=== PATIENT | male | born 1985 | race Caucasian/White ===

== ENCOUNTER 2016-12-07 10:50 | Day surgery (SDC) | payer SELFPAY ==
[~2016-12-07] VITALS: Ht 188 cm; Wt 70.3 kg
[~2016-12-07 10:50] MED LIST: ACC15GT EXT; AMOX500C2 PO; CIPR-225 PO; CYCL10TA9 PO; HYDR1TAB8 OP; PREG75CA PO; TRAM-42 PO; TRAM50TA2 PO; VALA100033 PO
--- NOTE | 2016-12-07 11:13 | ED Abdominal Pain ---
General Chief Complaint: Abdominal/GI Problems Stated Complaint: ABD PAIN Source of Information: Patient Exam Limitations: No Limitations History of Present Illness Time Seen By Provider: 11:12 Initial Comments To ER with epigastric and right upper quadrant abdominal pain for the past 2 days. He's had associated nausea and vomiting but no diarrhea or constipation. He's had chills but no measured fevers as he does not have a thermometer. He had a similar episode a few months ago of this pain but it resolved on its own after a course of a couple of days. He last ate a bowl of cereal at 830 a.m. this morning. Upon arrival to ER he is tachycardic at 130, temperature of 100, blood pressure 124/76. Timing/Duration: 1-2 Days Severity/Quality: Severe, Aching, Full Location: RUQ, Epigastric Radiation: No Radiation Associated Symptoms: Fever/Chills, Nausea/Vomiting Allergies and Home Medications Allergies Coded Allergies: No Known Drug Allergies (Unverified , 06/12/15) Home Medications No Active Prescriptions or Reported Meds Review of Systems Constitutional: see HPI, chills, No fever EENTM: No Symptoms Reported Respiratory: No Symptoms Reported, Denies Cough, Denies Shortness of Air Cardiovascular: No Symptoms Reported Gastrointestinal: See HPI, Abdominal Pain, Nausea, Vomiting Genitourinary: No Symptoms Reported Musculoskeletal: no symptoms reported Skin: no symptoms reported Psychiatric/Neurological: No Symptoms Reported Endocrine: No Symptoms Reported Past Yfrcjia-Usgicn-Rrftpy Hx Patient Social History Recent Foreign Travel: No Contact w/Someone Who Travel: No Immunizations Up To Date Tetanus Booster (TDap): Less than 5yrs Surgeries HX Surgeries: No Respiratory Hx Respiratory Disorders: No Cardiovascular Hx Cardiac Disorders: No Neurological Hx Neurological Disorders: No Reproductive System Hx Reproductive Disorders: No Genitourinary Hx Genitourinary Disorders: No Gastrointestinal Hx Gastrointestinal Disorders: No Musculoskeletal Hx Musculoskeletal Disorders: No Endocrine Hx Endocrine Disorders: No HEENT HX ENT Disorders: No Cancer Hx Cancer: No Psychosocial Hx Psychiatric Problems: No Integumentary HX Skin/Integumentary Disorder: Yes Skin/Integumentary Disorders: Psoriasis Blood Transfusions Hx Blood Disorders: No Family Medical History Significant Family History: No Pertinent Family Hx Family Medial History: Patient reports no known family medical history. Physical Exam Vital Signs VS - Last 72 Hours, by Label 12/07/16 11:10 Temp 100.0 Pulse 128 Resp 20 B/P (MAP) 124/75 Pulse Ox 97 O2 Delivery Room Air Capillary Refill : General Appearance: WD/WN, no apparent distress HEENT: PERRL/EOMI, normal ENT inspection Neck: non-tender, full range of motion Respiratory: normal breath sounds, no respiratory distress, no accessory muscle use Cardiovascular: no murmur, tachycardia Gastrointestinal: normal bowel sounds, soft, tenderness (epigastric and right upper quadrant tenderness) Extremities: normal range of motion, non-tender Neurologic/Psychiatric: alert, normal mood/affect, oriented x 3 Skin: normal color, warm/dry Progress/Results/Core Measures Results/Orders Lab Results Laboratory Tests Test 12/07/16 11:10 12/07/16 11:12 Range/Units White Blood Count 10.8 4.3-11.0 10^3/uL Red Blood Count 5.10 4.35-5.85 10^6/uL Hemoglobin 16.0 13.3-17.7 G/DL Hematocrit 46 40-54 % Mean Corpuscular Volume 91 80-99 FL Mean Corpuscular Hemoglobin 31 25-34 PG Mean Corpuscular Hemoglobin Concent 35 32-36 G/DL Red Cell Distribution Width 12.1 10.0-14.5 % Platelet Count 211 130-400 10^3/uL Mean Platelet Volume 9.3 7.4-10.4 FL Neutrophils (%) (Auto) 92 H 42-75 % Lymphocytes (%) (Auto) 7 L 12-44 % Monocytes (%) (Auto) 1 0-12 % Eosinophils (%) (Auto) 0 0-10 % Basophils (%) (Auto) 0 0-10 % Neutrophils # (Auto) 9.9 H 1.8-7.8 X 10^3 Lymphocytes # (Auto) 0.7 L 1.0-4.0 X 10^3 Monocytes # (Auto) 0.1 0.0-1.0 X 10^3 Eosinophils # (Auto) 0.0 0.0-0.3 10^3/uL Basophils # (Auto) 0.0 0.0-0.1 10^3/uL Neutrophils % (Manual) 85 % Lymphocytes % (Manual) 11 % Monocytes % (Manual) 0 % Eosinophils % (Manual) 0 % Basophils % (Manual) 0 % Band Neutrophils 4 % Blood Morphology Comment NORMAL Sodium Level 138 135-145 MMOL/L Potassium Level 3.6 3.6-5.0 MMOL/L Chloride Level 107 98-107 MMOL/L Carbon Dioxide Level 24 21-32 MMOL/L Anion Gap 7 5-14 MMOL/L Blood Urea Nitrogen 11 7-18 MG/DL Creatinine 0.74 0.60-1.30 MG/DL Estimat Glomerular Filtration Rate > 60 BUN/Creatinine Ratio 15 Glucose Level 117 H 70-105 MG/DL Calcium Level 9.3 8.5-10.1 MG/DL Total Bilirubin 1.5 H 0.1-1.0 MG/DL Aspartate Amino Transf (AST/SGOT) 18 5-34 U/L Alanine Aminotransferase (ALT/SGPT) 15 0-55 U/L Alkaline Phosphatase 80 40-136 U/L Total Protein 6.8 6.4-8.2 G/DL Albumin 4.2 3.2-4.5 G/DL Lipase 29 8-78 U/L Urine Color YELLOW Urine Clarity CLEAR Urine pH 6 5-9 Urine Specific [place] 1.020 1.016-1.022 Urine Protein 1+ H NEGATIVE Urine Glucose (UA) NEGATIVE NEGATIVE Urine Ketones NEGATIVE NEGATIVE Urine Nitrite NEGATIVE NEGATIVE Urine Bilirubin NEGATIVE NEGATIVE Urine Urobilinogen 4 H NORMAL MG/DL Urine Leukocyte Esterase 1+ H NEGATIVE Urine RBC (Auto) 1+ H NEGATIVE Urine RBC RARE /HPF Urine WBC RARE /HPF Urine Crystals NONE /LPF Urine Bacteria NEGATIVE /HPF Urine Casts NONE /LPF Urine Mucus NEGATIVE /LPF Urine Culture Indicated NO Urine Opiates Screen NEGATIVE NEGATIVE Urine Oxycodone Screen NEGATIVE NEGATIVE Urine Methadone Screen NEGATIVE NEGATIVE Urine Propoxyphene Screen NEGATIVE NEGATIVE Urine Barbiturates Screen NEGATIVE NEGATIVE Ur Tricyclic Antidepressants Screen NEGATIVE NEGATIVE Urine Phencyclidine Screen NEGATIVE NEGATIVE Urine Amphetamines Screen NEGATIVE NEGATIVE Urine Methamphetamines Screen NEGATIVE NEGATIVE Urine Benzodiazepines Screen NEGATIVE NEGATIVE Urine Cocaine Screen NEGATIVE NEGATIVE Urine Cannabinoids Screen POSITIVE H NEGATIVE My Orders Orders - MARU CHAMBERS APRN Cbc With Automated Diff (12/07/16 11:11) Comprehensive Metabolic Panel (12/07/16 11:11) Ua Culture If Indicated (12/07/16 11:11) Drug Screen Stat (Urine) (12/07/16 11:11) Lipase (12/07/16 11:11) Saline Lock/Iv-Start (12/07/16 11:11) Ct Abdomen/Pelvis W (12/07/16 11:11) Ns Iv 1000 Ml (Sodium Chloride 0.9%) (12/07/16 11:15) Ondansetron Injection (Zofran Injectio (12/07/16 11:15) Fentanyl Injection (Sublimaze Injection (12/07/16 11:15) Iohexol Injection (Omnipaque 350 Mg/Ml 1 (12/07/16 11:30) Sodium Chloride Flush (Catheter Flush Sy (12/07/16 11:30) Ns (Ivpb) (Sodium Chloride 0.9% Ivpb Bag (12/07/16 11:30) Manual Differential (12/07/16 11:10) Medications Given in ED Current Medications Medications Dose Ordered Sig/Brit Route Start Time Stop Time Status Last Admin Dose Admin Fentanyl Citrate 50 mcg ONCE ONCE IVP 12/07/16 11:15 12/07/16 11:16 DC 12/07/16 11:20 50 MCG Iohexol 100 ml ONCE ONCE IV 12/07/16 11:30 12/07/16 11:31 DC 12/07/16 11:37 100 ML Ondansetron HCl 4 mg ONCE ONCE IVP 12/07/16 11:15 12/07/16 11:16 DC 12/07/16 11:21 4 MG Sodium Chloride 10 ml NEEDED PRN IV 12/07/16 11:30 12/07/16 11:37 10 ML Sodium Chloride 100 ml ONCE ONCE IV 12/07/16 11:30 12/07/16 11:31 DC 12/07/16 11:37 80 ML Vital Signs/I&O Vital Sign - Last 12Hours 12/07/16 11:10 Temp 100.0 Pulse 128 Resp 20 B/P (MAP) 124/75 Pulse Ox 97 O2 Delivery Room Air Diagnostic Imaging Diagonstic Imaging: CT Plain Films/CT/US/NM/MRI: abdomen, pelvis Comments NAME: SOFYSERGOBreanna Rodriguez MED REC#: [id number] PT STATUS: [place] [facility] [place] 1985 PHYSICIAN: MARU CHAMBERS APRN ADMIT DATE: 12/07/16/[facility] [place] Date of Exam:12/07/16 CT ABDOMEN/PELVIS W PROCEDURE: CT abdomen and pelvis with contrast. TECHNIQUE: Multiple contiguous axial images were obtained through the abdomen and pelvis after administration of intravenous contrast. INDICATION: Right-sided abdominal pain. Vomiting. 100 mL of Omnipaque 350 is administered intravenously. FINDINGS: Mild emphysema changes are seen in the lung bases. The liver, the gallbladder, the spleen, the adrenal glands, and the pancreas appear unremarkable. There is inflammation in the retrocecal region with dilated fluid-filled appendix compatible with acute appendicitis. There is a small amount of free fluid seen in the right paracolic gutter with no fluid collection or abscess seen. No evidence of perforation at this time. No pneumoperitoneum. No bowel obstruction. The abdominal aorta is normal in caliber. No para-aortic significantly enlarged lymph node is seen. The osseous structures appear grossly unremarkable. IMPRESSION: Appendicitis. No evidence of perforation or abscess. The findings were discussed with SABRINA Johnson at time of dictation. Dictated on workstation # [id number] Dict: 12/07/16 1153 Trans: 12/07/[address] [facility] [id number] Interpreted by: JERMAIN CORDOBA MD Electronically signed by: Departure Communication Progress Notes 1200-discussed with Dr. Mcdonnell. He will be down to see the patient Impression Impression: Primary Impression: Acute appendicitis Disposition: ADMITTED INPATIENT Condition: Stable Decision to Admit Reason: Admit from ER (General) Decision to Admit/Date: December 07, 2016 Time/Decision to Admit Time: 12:00 Departure-Patient Inst. Referrals: [facility] (PCP/Family) Primary Care Physician Scripts No Active Prescriptions or Reported Meds MARU CHAMBERS APRN December 07, 2016 11:13
[2016-12-07] MEDS ORDERED: NS IV 1000 ML 1,000 ML IV SCH (11:15)
[2016-12-07] MEDS ORDERED: ONDANSETRON 4 MG/2 ML (SDV) Z0FRAN IVP ONE (11:15)
[2016-12-07] MEDS ORDERED: fentaNYL INJECTION 100 MCG/2 ML AMP IVP ONE ×2 (11:15→12:15)
[2016-12-07 11:18] LABS: BASOPHILS % (AUTO) 0 % (0-10); EOSINOPHILS % (AUTO) 0 % (0-10); LYMPHOCYTES # (AUTO) 0.7 X 10^3 (1.0-4.0); LYMPHOCYTES % (AUTO) 7 % (12-44); MEAN CORPUSCULAR HEMOGLOBIN 31 PG (25-34); MEAN CORPUSCULAR HGB CONC 35 G/DL (32-36); MEAN CORPUSCULAR VOLUME 91 FL (80-99); MEAN PLATELET VOLUME 9.3 FL (7.4-10.4); MONOCYTES # (AUTO) 0.1 X 10^3 (0.0-1.0); MONOCYTES % (AUTO) 1 % (0-12); NEUTROPHILS # (AUTO) 9.9 X 10^3 (1.8-7.8); NEUTROPHILS % (AUTO) 92 % (42-75); PLATELET COUNT 211 10^3/uL (130-400); RED CELL DISTRIBUTION WIDTH 12.1 % (10.0-14.5); WHITE BLOOD COUNT 10.8 10^3/uL (4.3-11.0)
[2016-12-07 11:19] LABS: BILIRUBIN,URINE NEGATIVE (NEGATIVE); KETONES,URINE NEGATIVE (NEGATIVE); LEUKOCYTE ESTERASE ,URINE 1+ (NEGATIVE); NITRITE,URINE NEGATIVE (NEGATIVE); PH,URINE 6 (5-9); PROTEIN,URINE 1+ (NEGATIVE); UROBILINOGEN,URINE 4 MG/DL (NORMAL)
[2016-12-07] MEDS ORDERED: IOHEXOL 350 MG/ML 100 ML (OMNIPAQUE 350) VIAL IV ONE (11:30)
[2016-12-07] MEDS ORDERED: NS 100 ML (IVPB) BAG IV ONE (11:30)
[2016-12-07] MEDS ORDERED: CATHETER FLUSH 10 ML SYR IV PRN (11:30)
[2016-12-07 11:32] LABS: WBC,URINE RARE /HPF
[2016-12-07 11:39] LABS: ALANINE AMINOTRANSFERASE 15 U/L (0-55); ALBUMIN 4.2 G/DL (3.2-4.5); ANION GAP 7 MMOL/L (5-14); ASPARTATE AMINO TRANSFERASE 18 U/L (5-34); BILIRUBIN,TOTAL 1.5 MG/DL (0.1-1.0); BLOOD UREA NITROGEN 11 MG/DL (7-18); BUN/CREATININE RATIO 15; CALCIUM 9.3 MG/DL (8.5-10.1); CARBON DIOXIDE 24 MMOL/L (21-32); CHLORIDE 107 MMOL/L (98-107); CREATININE SERUM 0.74 MG/DL (0.60-1.30); GFR ESTIMATED > 60; GLUCOSE 117 MG/DL (70-105); LIPASE 29 U/L (8-78); POTASSIUM 3.6 MMOL/L (3.6-5.0); SODIUM 138 MMOL/L (135-145); TOTAL PROTEIN 6.8 G/DL (6.4-8.2)
[2016-12-07 11:40] LABS: BAND NEUTROPHILS 4 %; BASOPHILS % (MANUAL) 0 %; EOSINOPHILS % (MANUAL) 0 %; LYMPHOCYTES % (MANUAL) 11 %; NEUTROPHILS % (MANUAL) 85 %
--- NOTE | 2016-12-07 12:05 | Diagnostic Imaging Report ---
PROCEDURE: CT abdomen and pelvis with contrast. TECHNIQUE: Multiple contiguous axial images were obtained through the abdomen and pelvis after administration of intravenous contrast. INDICATION: Right-sided abdominal pain. Vomiting. 100 mL of Omnipaque 350 is administered intravenously. FINDINGS: Mild emphysema changes are seen in the lung bases. The liver, the gallbladder, the spleen, the adrenal glands, and the pancreas appear unremarkable. There is inflammation in the retrocecal region with dilated fluid-filled appendix compatible with acute appendicitis. There is a small amount of free fluid seen in the right paracolic gutter with no fluid collection or abscess seen. No evidence of perforation at this time. No pneumoperitoneum. No bowel obstruction. The abdominal aorta is normal in caliber. No para-aortic significantly enlarged lymph node is seen. The osseous structures appear grossly unremarkable. IMPRESSION: Appendicitis. No perforation or abscess. The findings were discussed with SABRINA Johnson at time of dictation. Dictated by: Dictated on workstation # [id number]
[2016-12-07] MEDS ORDERED: LIDOCAINE/EPI 1%-1:100,000 (XYLOCAINE) 20ML ONE (13:07)
--- NOTE | 2016-12-07 13:09 | Consultation ---
History of Present Illness History of Present Illness Patient Consulted On(fidel/time) 12/07/16 13:02 Date of Admission History of Present Illness Surgery is asked to consult regarding RLQ pain, CT positive for appendicitis. HPI Pt presented to ER with epigastric and right lower quadrant abdominal pain for the past 2 days. He's had associated nausea and vomiting "four times yesterday "; but no diarrhea or constipation. He's had chills but no measured fevers, did not take his temp at home. He had a similar episode a few months ago of this pain but it resolved on its own after a course of a couple of days. He last ate a bowl of cereal at 830 a.m. this morning. Upon arrival to ER he is tachycardic at 130, temperature of 100, blood pressure 124/76. Pt states he thinks it started at noon yesterday. Rating the pain as 10 out of 10. Sharp stabbing pain, with no radiation. Nothing made it better. Allergies and Home Medications Allergies Coded Allergies: No Known Drug Allergies (Unverified , 06/12/15) Home Medications No Active Prescriptions or Reported Meds Past Bsstght-Lhzujt-Vncsto Hx Patient Social History Alcohol Use: Occasionally Uses Recreational Drug Use: Yes Drug of Choice: pot Smoking Status: Current Everyday Smoker Type Used: Cigarettes 2nd Hand Smoke Exposure: Yes Recent Foreign Travel: No Contact w/Someone Who Travel: No Recent Infectious Disease Expo: No Recent Hopitalizations: No Immunizations Up To Date Tetanus Booster (TDap): Less than 5yrs Seasonal Allergies Seasonal Allergies: No Surgeries HX Surgeries: Yes (on a gland in neck) Respiratory Hx Respiratory Disorders: No Cardiovascular Hx Cardiac Disorders: No Neurological Hx Neurological Disorders: No Reproductive System Hx Reproductive Disorders: No Genitourinary Hx Genitourinary Disorders: No Gastrointestinal Hx Gastrointestinal Disorders: No Musculoskeletal Hx Musculoskeletal Disorders: No Endocrine Hx Endocrine Disorders: No HEENT HX ENT Disorders: No Cancer Hx Cancer: No Psychosocial Hx Psychiatric Problems: No Integumentary HX Skin/Integumentary Disorder: Yes Skin/Integumentary Disorders: Psoriasis Blood Transfusions Hx Blood Disorders: No Family Medical History Significant Family History: No Pertinent Family Hx, Diabetes (denies), Hypertension (denies) Family Medial History: Patient reports no known family medical history. Review of Systems-General Constitutional: chills, diaphoresis, fever, weakness EENTM: No blurred vision, No epistaxis, No hoarseness, No throat swelling Respiratory: No cough, No dyspnea on exertion Cardiovascular: No chest pain, No edema, No palpitations Gastrointestinal: see HPI, No melena Genitourinary: No discharge, No dysuria, No frequency, No hematuria Musculoskeletal: No joint pain, No joint swelling, No muscle pain Skin: No change in color, No change in hair/nails Psychiatric/Neurological: Denies Anxiety, Denies Depressed, Denies Seizure Physical Exam-General Problems Physical Exam Vital Signs Vital Sign - Last 12Hours 12/07/16 11:10 Temp 100.0 Pulse 128 Resp 20 B/P (MAP) 124/75 Pulse Ox 97 O2 Delivery Room Air Capillary Refill : Less Than 3 Seconds General Appearance: WD/WN, moderate distress Eyes: Bilateral Eye EOMI, Bilateral Eye PERRL HEENT: pharynx normal, No scleral icterus (R), No scleral icterus (L) Neck: non-tender, full range of motion, supple, normal inspection Respiratory: chest non-tender, lungs clear, normal breath sounds, no respiratory distress, no accessory muscle use Cardiovascular: regular rate, rhythm, no murmur Gastrointestinal: no organomegaly, no pulsatile mass, guarding, tenderness (RLQ ) Back: no CVA tenderness, no vertebral tenderness Extremities: normal inspection, no pedal edema, no calf tenderness, normal capillary refill Neurologic/Psychiatric: 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, no motor/sensory deficits, alert, normal mood/affect, oriented x 3 Skin: normal color, warm/dry Lymphatic: no adenopathy (neck, axilla, groin) Data Review Labs Laboratory Tests 12/07/16 11:10: White Blood Count 10.8, Red Blood Count 5.10, Hemoglobin 16.0, Hematocrit 46, Mean Corpuscular Volume 91, Mean Corpuscular Hemoglobin 31, Mean Corpuscular Hemoglobin Concent 35, Red Cell Distribution Width 12.1, Platelet Count 211, Mean Platelet Volume 9.3, Neutrophils (%) (Auto) 92H, Lymphocytes (%) (Auto) 7L , Monocytes (%) (Auto) 1, Eosinophils (%) (Auto) 0, Basophils (%) (Auto) 0, Neutrophils # (Auto) 9.9H, Lymphocytes # (Auto) 0.7L, Monocytes # (Auto) 0.1, Eosinophils # (Auto) 0.0, Basophils # (Auto) 0.0, Neutrophils % (Manual) 85, Lymphocytes % (Manual) 11, Monocytes % (Manual) 0, Eosinophils % (Manual) 0, Basophils % (Manual) 0, Band Neutrophils 4, Blood Morphology Comment NORMAL, Sodium Level 138, Potassium Level 3.6, Chloride Level 107, Carbon Dioxide Level 24, Anion Gap 7, Blood Urea Nitrogen 11, Creatinine 0.74, Estimat Glomerular Filtration Rate > 60, BUN/Creatinine Ratio 15, Glucose Level 117H, Calcium Level 9.3, Total Bilirubin 1.5H, Aspartate Amino Transf (AST/SGOT) 18, Alanine Aminotransferase (ALT/SGPT) 15, Alkaline Phosphatase 80, Total Protein 6.8, Albumin 4.2, Lipase 29 12/07/16 11:12: Urine Color YELLOW, Urine Clarity CLEAR, Urine pH 6, Urine Specific [place] 1.020, Urine Protein 1+H, Urine Glucose (UA) NEGATIVE, Urine Ketones NEGATIVE, Urine Nitrite NEGATIVE, Urine Bilirubin NEGATIVE, Urine Urobilinogen 4H, Urine Leukocyte Esterase 1+H, Urine RBC (Auto) 1+H, Urine RBC RARE, Urine WBC RARE, Urine Crystals NONE, Urine Bacteria NEGATIVE, Urine Casts NONE, Urine Mucus NEGATIVE, Urine Culture Indicated NO, Urine Opiates Screen NEGATIVE, Urine Oxycodone Screen NEGATIVE, Urine Methadone Screen NEGATIVE, Urine Propoxyphene Screen NEGATIVE, Urine Barbiturates Screen NEGATIVE, Ur Tricyclic Antidepressants Screen NEGATIVE, Urine Phencyclidine Screen NEGATIVE, Urine Amphetamines Screen NEGATIVE, Urine Methamphetamines Screen NEGATIVE, Urine Benzodiazepines Screen NEGATIVE, Urine Cocaine Screen NEGATIVE, Urine Cannabinoids Screen POSITIVEH Assessment/Plan Assessment/Plan Assessment/Plan Acute appendicitis Plan: To OR for laparoscopic appendectomy. IVF and IV ABX just prior to OR. Discussed risks and complications; including but not limited to pain, bleeding, infection, scar and damage to bowel. All questions answered to his satisfaction. RAFAEL MADRIGAL DO December 07, 2016 13:08
[2016-12-07] MEDS ORDERED: fentaNYL INJECTION 250 MCG/5 ML AMP ONE (13:25)
[2016-12-07] MEDS ORDERED: MIDAZOLAM 2 MG/2 ML (VERSED) VIAL ONE (13:25)
[2016-12-07] MEDS: LACTATED RINGERS 1,000 ML IV PRN ×2 (13:25→14:09)
[2016-12-07] MEDS ORDERED: ONDANSETRON 4 MG/2 ML (SDV) Z0FRAN ONE (13:27)
[2016-12-07] MEDS ORDERED: ROCURONIUM 50 MG/5 ML (ZEMURON) VIAL IV ONE (13:27)
[2016-12-07] MEDS ORDERED: proPOfol 200 MG/20 ML (DIPRIVAN) VIAL IV ONE (13:27)
[2016-12-07] MEDS ORDERED: SUCCINYLCHOLINE INJ 100 MG/5 ML SYR ONE (13:27)
[2016-12-07] MEDS ORDERED: LACTATED RINGERS 1,000 ML IV ONE ×2 (13:27→14:10)
[2016-12-07] MEDS ORDERED: LIDOCAINE PF 2% 10 ML (XYLOCAINE) AMP ONE (13:27)
[2016-12-07] MEDS ORDERED: ceFAZolin 1,000 MG (ANCEF) VIAL ONE (13:43)
[2016-12-07] MEDS ORDERED: ceFAZolin 1,000 MG (ANCEF) VIAL IV ONE (14:00)
[2016-12-07] MEDS ORDERED: GLYCOPYRROLATE 0.2 MG/ML (ROBINUL) 2 ML VIAL ONE (14:10)
[2016-12-07] MEDS ORDERED: NEOSTIGMINE (BLOXIVERZ ) 1 MG/1ML 10 ML VIAL ONE (14:10)
[2016-12-07] MEDS ORDERED: SEVOFLURANE (ULTANE) 15 ML INHAL SOLN ONE (14:12)
[2016-12-07] MEDS ORDERED: morphine INJ 10 MG/ML 1ML (SYR OR VIAL) IVP PRN (14:15)
[2016-12-07] MEDS ORDERED: MEPERIDINE (DEMEROL) INJ 50 MG/ML IVP PRN (14:15)
[2016-12-07] MEDS ORDERED: MEPERIDINE (DEMEROL) INJ 50 MG/ML ONE (14:23)
--- NOTE | 2016-12-07 14:26 | Progress Note-Post Operative ---
Post-Operative Progess Note Surgeon (s)/Materials Supervisor (s) Surgeon RAFAEL MADRIGAL DO Materials Supervisor: none Pre-Operative Diagnosis acute appy Post-Operative Diagnosis same Post-Op Procedure Note Date of Procedure: December 07, 2016 Name of Procedure Performed: Lap appy Description of the Procedure: as above Findings of the Procedure acute appy Anesthesia Type GET Estimated blood loss (mL): less than 10ml Specimen(s) collected/removed RAFAEL Maddox DO December 07, 2016 14:26
[2016-12-07] MEDS ORDERED: HYDR-3820 PO (14:28)
--- NOTE | 2016-12-07 14:30 | Discharge Inst-Surgical ---
Discharge Inst-Surgical Depart Medication/Instructions New, Converted or Re-Newed RX: RX Given to Pt/Family Patient Instructions Follow up Appt: Make appointment for 1 week. [phone] Instructions: No lifting greater than 10 pounds. No strenuous activity. May shower in 24 hours, no tub bath or soaking. Use incentive spirometer at home as directed. No Smoking Skin/Wound Care: May remove bandages. You need to leave the white strips over incision on they will fall off on their own. Symptoms to Report: Appetite Changes, Extremity Discoloration, Numbness/Tingling, Swelling Increased , Bleeding Excessive, Eyesight Changes, Pain Increased, Urine Color Change, Constipation(Persistent), Fever over 101 degree F, Pain/Pressure in chest, Urinating Difficulty, Cough Up/Vomit Blood, Heart Beat Irreg/Pounding, Pain/ Pressure in jaw, Vaginal Bleeding Increase, Cramps in feet or legs, Lightheadedness, Pain/Pressure in shoulder, Diarrhea(Persistent), Memory Changes Suddenly, Questions/Concerns, Weight gain consecutive days, Dizziness/ Fainting, Nausea/Vomiting, Shortness of Breath, Weight gain over 2 pounds If questions or concerns contact your physician Or seek help at emergency department. Activity Activity as Tolerated: Yes Activity Instructions: Avoid Stress to Incision Driving Instructions: No Driving/Refer to Dr. Jeffers Driving When on Pain Meds: Yes Diet Discharge Diet: No Restrictions Diet After 24 Hours: Clear Liquid if Nauseous If Any Problems/Questions/Issu: Contact Your Physician, Go to Emergency Room Skin/Wound Care Infection Signs and Symptoms: Increased Redness, Foul Odor of Wound, Increased Drainage, Skin Itchy or Has a Rash, Increased Swelling, Temperature Above 101 F Bathing Instructions: Shower Stitches/Edgard/Dermabond Dis: Dermabond Ice Pack: Ice On and Off Site RAFAEL MADRIGAL DO December 07, 2016 14:30
[2016-12-07] MEDS ORDERED: morphine INJ 10 MG/ML 1ML (SYR OR VIAL) ONE (14:39)
[2016-12-07 15:20] VITALS: BP 129/72
[2016-12-07 15:50] VITALS: BP 120/74
[2016-12-07] MEDS ORDERED: HYDROcodone/APAP 10 MG/325 MG (LORTAB) TAB PO ONE ×2 (15:55→16:00)
[2016-12-07 16:25] VITALS: BP 133/79
[2016-12-07 16:55] VITALS: BP 133/79
--- NOTE | 2016-12-08 17:57 | OPERATIVE REPORT ---
DATE OF SERVICE: 12/07/2016 PREOPERATIVE DIAGNOSIS: Acute appendicitis. POSTOPERATIVE DIAGNOSIS: Acute appendicitis. PROCEDURE: Laparoscopic appendectomy. SURGEON: Dr. Mcdonnell. EXPEDITIONARY FIGHTING VEHICLE CREWMAN: None. ANESTHESIA: General endotracheal tube with local lidocaine injected by myself. SPECIMEN: Appendix. BLOOD LOSS: Less than 5 mL. FLUIDS: Per anesthesia. POSTOP CONDITION: Stable. INDICATION FOR PROCEDURE: The patient is a 31-year-old male, who came in with right lower quadrant pain that has been going on for a day and a half getting progressively worse with fever and chills and had the CT performed, was read by the radiologist as acute appendicitis. FINDINGS: The patient had acute appendicitis. PROCEDURE NOTE: After informed consent was obtained, the patient brought to the operating room, placed on table supine position. He was sterilely prepped and draped in normal fashion. Local lidocaine was used to infiltrate the skin above the umbilicus. Then made an incision with a #11 blade, carried down through the skin into the subcutaneous tissue, then debrided down the subcutaneous tissue with Bovie cautery down to the fascia. Fascia incised with Bovie electrocautery and then bluntly entered the abdomen, swept a finger around. Placed the 0 Vicryl [id number] suture, then placed an 11 mm trocar port under direct visualization. Created a pneumoperitoneum and then placed 2 more ports in a normal fashion using local lidocaine, 11 blade for stab incision and the VersaStep system, all done under direct visualization, one suprapubically , one in the left lower quadrant. The patient was then placed slightly Trendelenburg and then able to visualize the appendix, took picture of this as well as the terminal ileum which was also stuck down in this area and down on the right pelvic wall. Appendix was more retrocecal and up towards the right. There looked to be a little bit of purulent fluid. Grasped the appendix and actually able to get under it with a LigaSure and made a hole in the mesoappendix and then switched to 5 mm camera, placed Endo MAYRA across the base of appendix, clamped and then transected and then switched back and put the LigaSure back in and then in step peña fashion, clamping, coagulating and transecting in this fashion coming across the mesoappendix and coagulating and transecting the appendiceal artery. Once this is completely removed, then placed a bag in the abdomen, placed the appendix in the bag and then the removed this through the supraumbilical incision, copiously irrigated with normal saline, suctioned this out, took picture of the staple line, looked good. No other obvious pathology, no bleeding. The patient was placed supine and all ports removed under direct visualization and allowed the pneumoperitoneum to escape. Closed the supraumbilical incision with the 0 Vicryl suture previously placed. Copiously irrigated all incisions with normal saline. Closed the 2 small 5 mm incision with a single interrupted 4-0 undyed Monocryl subcuticular stitch. Closed the supraumbilical incision with 3 interrupted 4-0 undyed Monocryl subcuticular stitch. The area was cleaned and dried. Dermabond placed as well as bandage. The patient then transferred to recovery room in stable condition. Sponge, needle and instrument counts correct at the end of the case. Job ID: [id number] DocumentID: [id number] Dictated Date: 12/07/2016 17:25:40 Marble Coper Date: 12/08/2016 10:10:49 Dictated By: RAFAEL MCDONNELL DO
== END 2016-12-07 16:55 | disposition home or self-care (01) ==
LOC: EDUNIT# 10:50 → ER 10:52 → SDC 12:04
PROVIDERS: ATTEND Surgery
DX: K35.80 Unspecified acute appendicitis (principal); F17.210 Nicotine dependence, cigarettes, uncomplicated; F12.90 Cannabis use, unspecified, uncomplicated
CPT/HCPCS: 36415; 74177; 80053; 80306; 81000; 83690; 85007; 85027; 88304; 94664; 96361; 96374; 96375; 96376